=== PATIENT | female | born 1990 | race Caucasian/White ===

== ENCOUNTER 2021-09-01 11:04 | Observation (INO) | payer OTHER ==
[~2021-09-01] VITALS: Ht 162.6 cm; Wt 72.6 kg
[2021-09-01] MEDS: CELESTONE SOLUSPAN 6 MG/ML 5ML VIAL IM SCH (12:25)
[2021-09-01 13:28] LABS: APPEARANCE,URINE Clear (CLEAR); BILIRUBIN,URINE Negative (NEGATIVE); COLOR,URINE Yellow (YELLOW); GLUCOSE, URINE (UA) Negative (NEGATIVE); KETONES,URINE Negative (NEGATIVE); LEUKOCYTE ESTERASE ,URINE Negative (NEGATIVE); NITRATE,URINE Negative (NEGATIVE); OCCULT BLOOD,URINE Negative (NEGATIVE); PROTEIN,URINE Negative (NEGATIVE); UROBILINOGEN,URINE 0.2 mg/dL (0.2-1.0)
[2021-09-01] MEDS: LACTATED RINGERS 1000ML 1,000 ML IV PRN (18:59)
[2021-09-01] MEDS ORDERED: LABE100T5 PO (23:27)
[2021-09-01] MEDS ORDERED: AEC81 PO (23:27)
[2021-09-01] MEDS ORDERED: LABETALOL HCL 100 MG TABLET PO ONE (23:30)
[2021-09-02] MEDS: LACTATED RINGERS 1000ML 1,000 ML IV PRN (02:41)
[2021-09-02] MEDS ORDERED: LABETALOL HCL 100 MG TABLET PO SCH (09:00)
[2021-09-02] MEDS ORDERED: ASPIRIN 81 MG EC TAB PO SCH (09:00)
[2021-09-02] MEDS: CELESTONE SOLUSPAN 6 MG/ML 5ML VIAL IM SCH (11:13)
== END 2021-09-02 11:20 | disposition home or self-care (01) ==
LOC: LDH 11:11 → WSH 21:30
PROVIDERS: ADMIT Specialist; ATTEND Specialist
DX: O10.913 Unspecified pre-existing hypertension complicating pregnancy, third trimester (principal); Z3A.33 33 weeks gestation of pregnancy; Z87.891 Personal history of nicotine dependence
CPT/HCPCS: 59025; 76819; 81003; 96360; 96361 ×4; 96372 ×2; G0378 ×24; G0379; J0702 ×2; J7120 ×3; 96365

== ENCOUNTER 2021-09-11 16:08 | Observation (INO) | payer OTHER ==
[~2021-09-11] VITALS: Ht 160 cm; Wt 75.7 kg
[~2021-09-11 16:08] MED LIST: AEC81 PO; LABE100T5 PO
[2021-09-11] MEDS: DEXTROSE 5%-LACTATED RINGERS 1,000 ML IV SCH (17:43)
[2021-09-11] MEDS ORDERED: LABETALOL HCL 100 MG TABLET PO SCH (21:00)
[2021-09-12] MEDS: DEXTROSE 5%-LACTATED RINGERS 1,000 ML IV SCH (06:21)
[2021-09-12] MEDS ORDERED: ASPIRIN 81 MG EC TAB PO SCH (09:00)
== END 2021-09-12 09:10 | disposition home or self-care (01) ==
LOC: LDH 16:08
PROVIDERS: ADMIT Specialist; ATTEND Specialist
DX: O10.913 Unspecified pre-existing hypertension complicating pregnancy, third trimester (principal); O41.03X0 Oligohydramnios, third trimester, not applicable or unspecified; Z3A.34 34 weeks gestation of pregnancy; Z87.891 Personal history of nicotine dependence
CPT/HCPCS: 59025; 76815; 76819; 96360; 96361; G0378; J7120

== ENCOUNTER 2021-10-05 05:06 | Inpatient (IN) | payer OTHER ==
[~2021-10-05] VITALS: Ht 163.8 cm; Wt 80.7 kg
[2021-10-05] MEDS ORDERED: LABE1PLA IV (05:22)
[2021-10-05] MEDS ORDERED: AEC81 PO (05:22)
[2021-10-05] MEDS ORDERED: CEFAZOLIN SODIUM 1 GM VIAL IVP PRN (05:30)
[2021-10-05] MEDS ORDERED: LACTATED RINGERS 1000ML 1,000 ML IV SCH (05:30)
[2021-10-05] MEDS ORDERED: CITRIC ACID/SODIUM CITRATE 30 ML UDCUP PO PRN (05:30)
[2021-10-05 06:04] LABS: MEAN CORPUSCULAR HEMOGLOBIN 32.6 pg (27.0-33.0); MEAN CORPUSCULAR HGB CONC 33.3 g/dL (32.0-36.0); MEAN CORPUSCULAR VOLUME 97.8 fL (79-99); RED BLOOD CELL COUNT(AUTO) 3.68 MIL/uL (4.00-5.50); RED CELL DISTRIBUTION WIDTH 12.2 % (11.0-15.5); WHITE BLOOD COUNT (AUTO) 9.3 K/uL (4.8-10.8)
[2021-10-05 06:16] VITALS: BP 135/88
[2021-10-05] MEDS ORDERED: PREN1TAB80 PO (06:21)
[2021-10-05] MEDS ORDERED: MORPHINE PF 100MG/10ML AMP IV ONE (11:27)
[2021-10-05] MEDS ORDERED: ONDANSETRON 4MG INJ ONE (11:27)
[2021-10-05] MEDS ORDERED: FENTANYL CITRATE PF 50 MCG/1 ML 2ML VIAL ONE (11:27)
[2021-10-05] MEDS ORDERED: CEFAZOLIN SODIUM 2 GM VIAL IV ONE (11:31)
[2021-10-05] MEDS ORDERED: OXYTOCIN 10 USP UNITS/ML ONE (11:50)
[2021-10-05] MEDS ORDERED: PHENYLEPHRINE HCL 10 MG/ML 1ML VIAL IV ONE (11:57)
[2021-10-05] MEDS ORDERED: 0.9%NACL 10ML VIAL IVP PRN (12:00)
[2021-10-05] MEDS ORDERED: OXYTOCIN-LR 20 UNITS/1000 ML 1,000 ML IV PRN (12:00)
[2021-10-05] MEDS ORDERED: MIDAZOLAM HCL 1 MG/ML 2ML VIAL ONE (12:01)
[2021-10-05] MEDS ORDERED: OXYTOCIN-LR 20 UNITS/1000 ML 1,000 ML IV ONE (12:14)
[2021-10-05 14:10] LABS: HEPATITIS B SURFACE ANTIGEN Non-Reactive (Negative)
[2021-10-05 14:39] VITALS: BP 136/95
[2021-10-05 16:34] VITALS: BP 138/92
[2021-10-05 18:05] VITALS: BP 107/67
[2021-10-05] MEDS: DEXTROSE 5 %-0.45 % NACL 1,000 ML IV PRN (19:18)
[2021-10-05 20:15] VITALS: BP 131/76
[2021-10-05] MEDS ORDERED: NALOXONE HCL 0.4 MG/1 ML ML IVP PRN ×3 (21:00)
[2021-10-05] MEDS ORDERED: DiphenhydrAMINE HCL 50 MG/ML VIAL IV PRN (21:00)
[2021-10-05] MEDS ORDERED: DiphenhydrAMINE HCL 50 MG/ML VIAL IVP PRN (21:00)
[2021-10-05] MEDS ORDERED: EPHEDRINE SULFATE 50 MG/ML AMPULE IVP PRN (21:00)
[2021-10-05] MEDS ORDERED: ONDANSETRON 4MG INJ IVP PRN (21:00)
[2021-10-05] MEDS: LABETALOL HCL 100 MG TABLET PO SCH (21:12)
[2021-10-05] MEDS: PROMETHAZINE HCL 25 MG/ML 1ML AMPULE IM PRN (23:37)
[2021-10-05] MEDS: MEPERIDINE-PF 75 MG/ML SYG IM PRN (23:38)
[2021-10-06 00:08] VITALS: BP 149/76
[2021-10-06] MEDS: DEXTROSE 5 %-0.45 % NACL 1,000 ML IV PRN (02:38)
[2021-10-06 03:46] VITALS: BP 128/75
[2021-10-06 06:27] LABS: HEMATOCRIT 31.4 % (36-48); MEAN CORPUSCULAR HEMOGLOBIN 31.9 pg (27.0-33.0); MEAN CORPUSCULAR HGB CONC 32.5 g/dL (32.0-36.0); MEAN CORPUSCULAR VOLUME 98.1 fL (79-99); RED BLOOD CELL COUNT(AUTO) 3.2 MIL/uL (4.00-5.50); RED CELL DISTRIBUTION WIDTH 11.9 % (11.0-15.5); WHITE BLOOD COUNT (AUTO) 14.6 K/uL (4.8-10.8)
[2021-10-06] MEDS: MEPERIDINE-PF 75 MG/ML SYG IM PRN (06:44)
[2021-10-06] MEDS: PROMETHAZINE HCL 25 MG/ML 1ML AMPULE IM PRN (06:44)
[2021-10-06 07:40] VITALS: BP 135/85
[2021-10-06] MEDS ORDERED: BISACODYL 10 MG SUPP.RECT RC PRN (08:00)
[2021-10-06] MEDS ORDERED: LANOLIN 30GM OINTMENT TP PRN (08:00)
[2021-10-06] MEDS ORDERED: ACETAMINOPHEN 500 MG TABLET PO PRN (08:00)
[2021-10-06] MEDS ORDERED: HYDROCODONE/ACETAMINOPHEN 5/325 MG TAB PO PRN (08:00)
[2021-10-06] MEDS: LABETALOL HCL 100 MG TABLET PO SCH ×2 (09:28→20:38)
[2021-10-06] MEDS: SIMETHICONE 80 MG TAB.CHEW PO PRN ×2 (09:28→19:45)
[2021-10-06] MEDS: IBUPROFEN 600 MG TABLET PO PRN ×2 (09:29→18:41)
[2021-10-06] MEDS: DOCUSATE SODIUM 100 MG CAP PO SCH ×2 (09:29→19:45)
[2021-10-06] MEDS: ACETAMINOPHEN WITH CODEINE 1 TAB TAB PO PRN ×2 (15:07→19:45)
[2021-10-06 15:17] VITALS: BP 132/83
[2021-10-06 19:45] VITALS: BP 121/76
[2021-10-06 23:45] VITALS: BP 134/82
[2021-10-07 03:04] VITALS: BP 133/84
[2021-10-07] MEDS: ACETAMINOPHEN WITH CODEINE 1 TAB TAB PO PRN (03:04)
[2021-10-07 08:52] VITALS: BP 136/88
[2021-10-07] MEDS: IBUPROFEN 600 MG TABLET PO PRN (08:54)
[2021-10-07] MEDS: DOCUSATE SODIUM 100 MG CAP PO SCH (08:54)
[2021-10-07] MEDS: LABETALOL HCL 100 MG TABLET PO SCH (08:54)
[2021-10-07] MEDS: SIMETHICONE 80 MG TAB.CHEW PO PRN (08:54)
[2021-10-07 11:59] VITALS: BP 140/84
== END 2021-10-07 12:45 | disposition home or self-care (01) | DRG 787 ==
LOC: LDH 05:06 → WSH 14:35
PROVIDERS: ADMIT Specialist; ATTEND Specialist
PROC: 10D00Z1 Extraction of Products of Conception, Low, Open Approach (ICD-10-PCS; principal; 2021-10-06)
DX: O32.1XX0 Maternal care for breech presentation, not applicable or unspecified (principal); O10.92 Unspecified pre-existing hypertension complicating childbirth; Z3A.38 38 weeks gestation of pregnancy; Z37.0 Single live birth; Z82.49 Family history of ischemic heart disease and other diseases of the circulatory system; Z83.3 Family history of diabetes mellitus
CPT/HCPCS: 36415; 59510; 76815; 85027; 86592; 86701; 86850; 86900; 86901; 87340; 87635; A4344; G0378; J0690; J1200; J2175; J2250; J2274; J2370; J2405; J2550; J2590; J3010; J7120